=== PATIENT | female | born 1970 | race African-American/Black ===

== ENCOUNTER 2019-04-16 07:19 | Emergency (ER) | payer SELFPAY ==
[2019-04-16 09:07] LABS: HEMATOCRIT 45.2 % (36.0-47.0); MEAN CORPUSCULAR HEMOGLOBIN 28.4 pg (27.0-33.4); MEAN CORPUSCULAR HGB CONC 33.1 g/dL (32.0-36.0); MEAN CORPUSCULAR VOLUME 86 fl (80-97); PLATELET COUNT 271 10^3/uL (150-450); RED BLOOD COUNT 5.27 10^6/uL (3.72-5.28); RED CELL DISTRIBUTION WIDTH 14.6 % (11.5-14.0); WHITE BLOOD COUNT 6.1 10^3/uL (4.0-10.5)
[2019-04-16 09:20] LABS: APPEARANCE,URINE SLIGHTLY-CLOUDY; BILIRUBIN,URINE NEGATIVE (NEGATIVE); COLOR,URINE YELLOW; GLUCOSE, URINE >=500 mg/dL (NEGATIVE); KETONES,URINE 80 mg/dL (NEGATIVE); LEUKOCYTE ESTERASE,URINE NEGATIVE (NEGATIVE); NITRITE,URINE NEGATIVE (NEGATIVE); PROTEIN,URINE NEGATIVE (NEGATIVE); URINE SPECIFIC GRAVITY 1.024; UROBILINOGEN,URINE NEGATIVE mg/dL (<2.0)
[2019-04-16] MEDS ORDERED: NORMAL SALINE 1000 ML 1,000 ML IV ONE ×2 (09:29→10:54)
[2019-04-16 09:32] LABS: ALANINE AMINOTRANSFERASE 58 U/L (9-52); ALBUMIN 4.1 g/dL (3.5-5.0); ALKALINE PHOSPHATASE 60 U/L (38-126); ANION GAP 19 (5-19); ASPARTATE AMINO TRANSFERASE 47 U/L (14-36); BILIRUBIN,DIRECT 0.4 mg/dL (0.0-0.4); BILIRUBIN,TOTAL 0.7 mg/dL (0.2-1.3); BLOOD UREA NITROGEN 17 mg/dL (7-20); CALCIUM 10.1 mg/dL (8.4-10.2); CARBON DIOXIDE 18 mmol/L (22-30); CHLORIDE 98 mmol/L (98-107); CREATINE KINASE 66 U/L (30-135); POTASSIUM 4.8 mmol/L (3.6-5.0); SODIUM 134.7 mmol/L (137-145); TOTAL PROTEIN 7.4 g/dL (6.3-8.2)
--- NOTE | 2019-04-16 09:33 | ER Document Report ---
ED General - General Chief Complaint: Dizziness Stated Complaint: DIZZINESS Time Seen by Provider: 04/16/19 09:19 TRAVEL OUTSIDE OF THE [place] IN LAST 30 DAYS: No - HPI Notes: Patient is a 49-year-old female with a history of diet-controlled diabetes and obesity who presents complaining of having an episode of feeling dizziness when she was driving yesterday for about 3 minutes. Patient states that the symptoms have since resolved and she is feeling much better but wanted an evaluation as she does not have a family doctor. Patient states that she is drinking lots of water and is urinating frequently. She does not take any medicines daily. She is otherwise able to eat without difficulties. She is having normal bowel movements. No significant cardiopulmonary medical history otherwise. Denies any headache, fever, head injury, neck pain, changes in vision/speech/mentation/hearing, URI, sore throat, chest pain, palpitations, syncope, cough, shortness of breath, wheeze, dyspnea, abdominal pain, nausea/vomiting/diarrhea, urinary retention, dysuria, hematuria, loss of control of bowel or bladder, numbness/tingling, muscle paralysis/weakness, or rash. - Related Data Allergies/Adverse Reactions: No Known Allergies Allergy (Unverified 04/16/19 07:22) Past Medical History - Social History Smoking Status: Never Smoker Chew tobacco use (# tins/day): No Frequency of alcohol use: None Drug Abuse: None Family History: Reviewed & Not Pertinent Patient has suicidal ideation: No Patient has homicidal ideation: No Renal/ Medical History: Denies: Hx Peritoneal Dialysis Review of Systems - Review of Systems -: Yes All other systems reviewed and negative Physical Exam - Vital signs Vitals: Temp Pulse Resp BP Pulse Ox 99.2 F 114 H 18 149/90 H 94 04/16/19 07:36 04/16/19 07:36 04/16/19 07:36 04/16/19 07:36 04/16/19 07:36 Notes: Pulse currently 95 on monitor and during exam. - Notes Notes: PHYSICAL EXAMINATION: GENERAL: Well-appearing, well-nourished and in no acute distress. A&Ox4. Answers questions appropriately. HEAD: Atraumatic, normocephalic. Non-tender. EYES: Pupils equal round and reactive to light, extraocular movements intact, sclera anicteric, conjunctiva are normal. No nystagmus. ENT: EAC clear b/l. TM's intact b/l without erythema, fluid, or perforation. Nares patent and without discharge. oropharynx clear without exudates. No tonsilar hypertrophy or erythema. Moist mucous membranes. NECK: Normal range of motion, supple without lymphadenopathy. No rigidity/meningismus. No midline tenderness. LUNGS: Breath sounds clear to auscultation bilaterally and equal. No wheezes rales or rhonchi. HEART: Regular rate and rhythm without murmurs, rubs, gallops. ABDOMEN: Soft, nontender, nondistended abdomen. No guarding, no rebound. No rmal bowel sounds present. No CVA tenderness bilaterally. Musculoskeletal: Ext's b/l: FROM to passive/active. Strength 5+/5. No deficits noted. No bony tenderness of extremities. Extremities: No cyanosis, clubbing, or edema b/l. Peripheral pulses 2+. Capillary refill less than 2 seconds. NEUROLOGICAL: NIH 0. GCS 15. Cranial nerves grossly intact. Normal speech, normal gait. Normal sensory, motor exams. Reflexes 2+ b/l. YVETTE's negative. Pronator drift negative. Heel/esteves, finger/nose wnl. Rhomberg neg. PSYCH: Normal mood, normal affect. SKIN: Warm, Dry, normal turgor, no rashes or lesions noted. Course - Re-evaluation Re-evalutation: 04/16/19 12:32 Patient is an afebrile, well-hydrated, 49-year-old female who presents with elevated blood glucose and diabetes. Vitals are acceptable without significant tachycardia, tachypnea, or hypoxia. PE is otherwise unremarkable. Patient has been asymptomatic since her incident yesterday. Patient is nontoxic-appearing and is tolerating p.o. without difficulty. CBC, TSH, magnesium, phosphorus, cardiac enzymes, EKG unremarkable. CMP shows elevated glucose without a gap. Patient has not had any nausea, vomiting, or abdominal pain. See urinalysis results. Patient was given 2 L of fluid as well as p.o. fluids. She was given metformin. Low suspicion for any sepsis, meningitis, severe dehydration, respiratory compromise, DKA, HHS , or other systemic emergent condition at this time. Patient is aware that condition can change from initial presentation and she needs to monitor symptoms closely and seek medical attention with any acute changes. I will send her home with a prescription for metformin. Conservative measures otherwise as reviewed. Recheck/establish with a PCM in the next week. Return to the ED with any other worsening/concerning symptoms. Patient is in agreement. - Vital Signs Vital signs: Temp Pulse Resp BP Pulse Ox 98.2 F 88 15 130/74 H 99 04/16/19 09:01 04/16/19 11:00 04/16/19 12:00 04/16/19 11:01 04/16/19 12:00 - Laboratory Result Diagrams: 04/16/19 08:50 04/16/19 08:50 Laboratory results interpreted by me: 04/16/19 04/16/19 04/16/19 07:24 08:50 08:50 RDW 14.6 H Seg Neuts % (Manual) 41 L Lymphocytes % (Manual) 46 H Sodium 134.7 L Carbon Dioxide 18 L Glucose 461 H* AST 47 H ALT 58 H Urine Glucose (UA) >=500 H Urine Ketones 80 H Discharge - Discharge Clinical Impression: Elevated glucose Type 2 diabetes mellitus Qualifiers: Diabetes mellitus longterm insulin use: without intermodal owner operator truck driver use Diabetes mellitus complication status: without complication Qualified Code(s): E11.9 - Type 2 diabetes mellitus without complications Condition: Stable Disposition: HOME, SELF-CARE Instructions: Diabetes ([facility]), Family Physicians / Practices Additional Instructions: Maintain adequate fluid and food intake Take home medications as directed Avoid carbs/sugar Exercise regularly Weight control Monitor blood pressure/sugar daily and keep a log Monitor symptoms for any acute changes Recheck with your PCM in 3-5 days Consider a follow-up with endocrinology Return to the ED with any worsening symptoms and/or development of fever, headache, chest pain, palpitations, syncope, shortness of breath, trouble breathing, abdominal pain, n/v/d, blood in stool/urine, loss of control of bowel/bladder, urinary retention, muscle weakness/paralysis, numbness/tingling, or other worsening symptoms that are concerning to you. Prescriptions: Metformin HCl [Glucophage 500 mg Tablet] 500 mg PO BID #60 tablet Forms: Elevated Blood Pressure Referrals: [facility] [Provider Group] - Follow up as needed [facility] ([place], [place]) [Provider Group] - Follow up as needed
[2019-04-16 09:36] LABS: ABSOLUTE LYMPHOCYTES# (MANUAL) 3.2 10^3/uL (0.5-4.7); ABSOLUTE MONOCYTES # (MANUAL) 0.4 10^3/uL (0.1-1.4); ABSOLUTE NEUTROPHILS# (MANUAL) 2.5 10^3/uL (1.7-8.2); BASOPHILS % (MANUAL) 0 % (0-2); EOSINOPHILS % (MANUAL) 0 % (0-6); LYMPHOCYTES % (MANUAL) 46 % (13-45); MONOCYTES % (MANUAL) 6 % (3-13); SEGMENTED NEUTROPHILS % (MAN) 41 % (42-78); TOTAL CELLS COUNTED 100
[2019-04-16 09:37] LABS: ANISOCYTOSIS SLIGHT; PLATELET COMMENT ADEQUATE; POLYCHROMASIA SLIGHT
[2019-04-16 09:44] LABS: CREATINE KINASE MB < 0.22 ng/mL (<4.55); TROPONIN I < 0.012 ng/mL
[2019-04-16 09:46] LABS: GLUCOSE 461 mg/dL (75-110)
[2019-04-16 10:07] LABS: PHOSPHORUS 4.2 mg/dL (2.5-4.5)
--- NOTE | 2019-04-16 10:15 | EKG REPORT ---
SEVERITY:- ABNORMAL ECG - SINUS TACHYCARDIA DEVORAH, CONSIDER BIATRIAL ABNORMALITIES LEFT ANTERIOR FASCICULAR BLOCK LEFT VENTRICULAR HYPERTROPHY CONSIDER ANTERIOR INFARCT : Confirmed by: Chasidy Bernal 16-Apr-2019 10:15:12
[2019-04-16] MEDS ORDERED: METFORMIN HCL 500 MG TABLET PO ONE (10:54)
[2019-04-16 13:24] VITALS: BP 125/71
== END 2019-04-16 13:24 | disposition home or self-care (01) ==
LOC: ER 07:19
DX: E11.65 Type 2 diabetes mellitus with hyperglycemia (principal); R42 Dizziness and giddiness
CPT/HCPCS: 93005; 99284; 96360; 96361; 36415; 82553; 82962; 82550; 83735; 84100; 84443; 85025; 80053; 81001; 84484; 93010; J7030